=== PATIENT | female | born 1955 | race Caucasian/White ===

== ENCOUNTER → 2016-08-28 | Outpatient (CLI) | payer OTHER | LOC: FIMAGING 10:16 | PROVIDERS: ATTEND Internal Medicine | DX: Z12.31 Encounter for screening mammogram for malignant neoplasm of breast (principal) | CPT/HCPCS: G0202 ==

== ENCOUNTER 2017-06-22 18:48 | Emergency (ER) | payer MEDICAID, OTHER ==
--- NOTE | 2017-06-22 18:56 | EDPHY ---
H & P Time Seen by Provider: 06/22/17 18:54 HPI/ROS: CHIEF COMPLAINT: Upper back pain HISTORY OF PRESENT ILLNESS: The patient is a 61 y/o female complaining of upper back pain. She got her left arm caught in a door 2 days ago resulting in a large bruise to her left forearm. Yesterday, she developed pain in the medial aspect of her left scapula. Throughout the day, the pain moved into her left shoulder and back. Today the pain has spread to involve the left anterior chest as well. The pain is mild and increases with left shoulder ROM. No change with exertion. Last week she developed some sinus congestion and today developed a cough. 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 She had a heart scan through Dr. Llanos a few months ago with a score of 0. She denies difficulty breathing, sweatiness, dizziness, cough or any other associated symptoms. REVIEW OF SYSTEMS: A 10 point review of systems was performed and is negative with the exception of the elements mentioned in the history of present illness. Past Medical/Surgical History: Denies Social History: Nurse, has chickens and dogs, lives in [place] Smoking Status: Never smoked Physical Exam: General Appearance: Alert, pleasant Eyes: Pupils equal and round, no conjunctival pallor or injection ENT, Mouth: Mucous membranes moist Neck: Normal inspection Back: left periscapular tenderness Respiratory: no anterior chest wall tenderness, lungs are clear to auscultation Cardiovascular: Regular rate and rhythm Gastrointestinal: Abdomen is soft and non-tender Neurological: A&O, nonfocal exam Skin: Warm and dry, no rash Extremities: pain with left shoulder extension Vascular: radial pulse 2+ Psychiatric: Mood and affect normal Constitutional: Initial Vital Signs Heart Rate 84 06/22/17 19:52 Blood Pressure 104/73 06/22/17 19:52 O2 Sat (%) 97 06/22/17 19:52 O2 Delivery Mode Room Air Allergies/Adverse Reactions: No Known Allergies Allergy (Unverified 12/20/10 12:45) Home Medications: Medication Instructions Recorded NO HOME MEDS 07/21/09 Medical Decision Making - Diagnostics EKG Interpretation: EKG interpreted by me reveals normal sinus rhythm, rate 86, nonspecific anterior T-wave changes. Imaging Results: Chest x-ray independently reviewed by me reveals no acute disease. ED Course/Re-evaluation: The patient presents with upper back pain after an injury 2 days ago. The clinical presentation is c/w musculoskeletal etiology of pain. Other etiologies considered, including cardiac, but doubt given atypical pain, normal heart scan recently and normal EKG. No clinical suspicion for PE, given no RF and atypical presentation. CXR ordered. CXR unremarkable. Will start ibuprofen for pain, warning signs discussed. Differential Diagnosis: Differential diagnosis includes though it is not limited to pneumonia, pneumothorax, pulmonary embolism, aortic dissection, pericarditis, acute coronary syndrome. - Data Points Medications Given: Discontinued Medications Ketorolac Tromethamine (Toradol) 15 mg IVP EDNOW ONE Stop: 06/22/17 19:43 Last Admin: 06/22/17 19:51 Dose: 15 mg Departure - Departure Disposition: Home, Routine, Self-Care Clinical Impression: Musculoskeletal back pain Condition: Good Instructions: Musculoskeletal Pain (ED), Back Pain (ED) Additional Instructions: 1. Take ibuprofen as directed below as needed for pain. 2. Follow-up with your primary care provider for unimproved symptoms in 5-7 days. 3. Return to the emergency department for any concerns. Adult Pain & Fever Control: We recommend Acetaminophen (Tylenol) and Ibuprofen (Motrin,Advil) for pain and fever control. When fever is high or pain severe, both drugs can be used at the same time, but at different intervals. Please note the time differences. Your dose is: Acetaminophen 650mg every 4 to 6 hours Ibuprofen 600mg every 8 hours with food Note: do not take Acetaminophen with Hydrocodone (Vicodin, Lortab) or Oycodone (Percocet). These medications also contain Acetaminophen. No more than 3000mg of Acetaminophen should be taken in 24 hours (for an adult). Referrals: Sydnie Bowers MD [Primary Care Provider] - As per Instructions Report Scribed for: Angeles Mccormick Report Scribed by: Krista Copeland Date of Report: 06/22/17 Time of Report: 18:56 Physician Review and Approval Statement: 06/22/17 18:56 Portions of this note were transcribed by a medical billing representative. I personally performed a history, physical exam, medical decision making, and confirmed accuracy of information the transcribed note.
--- NOTE | 2017-06-22 18:58 | CPEKG ---
Heart Rate: 86 RR Interval: 698 P-R Interval: 128 QRSD Interval: 86 QT Interval: 360 QTC Interval: 431 P [place]: 76 QRS [place]: 82 T Wave Windsor: -43 EKG Severity - NORMAL ECG - EKG Impression: SINUS RHYTHM Electronically Signed By: Angeles Mccormick 22-Jun-2017 19:45:14
[2017-06-22] MEDS ORDERED: KETOROLAC 15 MG/1 ML SDV IVP ONE (19:42)
[2017-06-22 19:54] VITALS: BP 104/73; PULSE 84; O2SAT 97
== END 2017-06-22 19:54 | disposition home or self-care (01) ==
DX: S29.9XXA Unspecified injury of thorax, initial encounter (principal); W23.0XXA Caught, crushed, jammed, or pinched between moving objects, initial encounter
CPT/HCPCS: 96374; J1885